=== PATIENT | female | born 1955 | race Hispanic/Latino ===

== ENCOUNTER → 2018-01-21 | Day surgery (SDC) | payer BC, MEDICARE ==
[~2018-01-21] MED LIST: AMLODIPINE BESY10 MG PO; AMOXICILLIN500 MG PO; ASPIRIN BUFFER325 MG PO; ASPIRIN300 MG PO; ASPIRIN81 MG PO; CLONIDINE HCL0.2 MG PO; COLACE100 MG PO; FENTANYL CITRATE/PF 100MCG/2 ML INJ ONE; HYDRALAZINE HCL 20 MG/ML VIAL ONE; HYDROCHLOROTHIA25 MG PO; LEVEMIR100 UNIT/1 SQ; METOPROLOL TART50 MG PO; MIDAZOLAM HCL 2 MG/2 ML VIAL ONE; NOVOLIN N100 UNIT/2 SQ; NOVOLOG100 UNIT/1 SQ; OR PHACO EYE KIT ONE; PANTOPRAZOLE SO40 MG PO; PENTOXIFYLLINE400 MG PO; PIOGLITAZONE15 MG PO; PLAVIX75 MG PO; PLETAL100 MG PO; PREOP PHACO EYE KIT ONE; SIMVASTATIN20 MG PO; STOOL SOFTENER100 M1 PO; SUCRALFATE1 GM PO; TRAMADOL HCL100 MG PO
== END | disposition home or self-care (01) ==
LOC: OR 11:32
PROVIDERS: ATTEND Ophthalmology
DX: H25.11 Age-related nuclear cataract, right eye (principal); E11.9 Type 2 diabetes mellitus without complications; I10 Essential (primary) hypertension; I65.29 Occlusion and stenosis of unspecified carotid artery; K21.9 Gastro-esophageal reflux disease without esophagitis; Z79.02 Long term (current) use of antithrombotics/antiplatelets; Z79.82 Long term (current) use of aspirin; Z79.4 Long term (current) use of insulin
CPT/HCPCS: 36415; 66984; 82948; J0360; J2250

== ENCOUNTER → 2018-02-18 | Day surgery (SDC) | payer MEDICARE, MEDICAID ==
[~2018-02-18] MED LIST changes: +DEXTROSE 5% 250ML 250 ML IV ONE; -FENTANYL CITRATE/PF 100MCG/2 ML INJ ONE; -HYDRALAZINE HCL 20 MG/ML VIAL ONE
== END | disposition home or self-care (01) ==
LOC: OR 09:57
PROVIDERS: ATTEND Ophthalmology
DX: H25.12 Age-related nuclear cataract, left eye (principal); E11.9 Type 2 diabetes mellitus without complications; I10 Essential (primary) hypertension; Z88.8 Allergy status to other drugs, medicaments and biological substances; Z91.041 Radiographic dye allergy status; Z79.02 Long term (current) use of antithrombotics/antiplatelets; Z79.82 Long term (current) use of aspirin; Z79.4 Long term (current) use of insulin; Z95.5 Presence of coronary angioplasty implant and graft
CPT/HCPCS: 36415; 66984; 82948; J2250; V2632

== ENCOUNTER → 2020-12-06 | Outpatient (CLI) | payer MEDICARE ==
[~2020-12-06] MED LIST changes: -DEXTROSE 5% 250ML 250 ML IV ONE; -MIDAZOLAM HCL 2 MG/2 ML VIAL ONE; -OR PHACO EYE KIT ONE; -PREOP PHACO EYE KIT ONE; +REGADENOSON 0.4 MG/5 ML SYR IV ONE
== END ==
LOC: NM 12:02
PROVIDERS: ATTEND Internal Medicine Interventional Cardiology
DX: I20.8 Other forms of angina pectoris (principal)
CPT/HCPCS: 78452; 93017; A9502; J2785